=== PATIENT | female | born 1990 | race Caucasian/White ===

== ENCOUNTER 2023-01-11 15:39 | Emergency (ER) | payer OTHER ==
[2023-01-11] MEDS ORDERED: diphenhydrAMINE 50 MG/ML VIAL ONE (16:12)
[2023-01-11] MEDS ORDERED: Prochlorperazine 10 MG/2 ML VIAL ONE (16:12)
[2023-01-11] MEDS ORDERED: methylPREDNISolone Sod Succ/PF 125 MG/2 ML VIAL ONE (16:12)
[2023-01-11] MEDS ORDERED: Ketorolac Tromethamine 30 MG/ML VIAL ONE (16:12)
== END 2023-01-11 17:07 | disposition home or self-care (01) ==
LOC: BURERS 15:39
DX: G43.909 Migraine, unspecified, not intractable, without status migrainosus (principal)
CPT/HCPCS: 96361; 96374; 96375; J0780; J1200; J1885; J2930